=== PATIENT | female | born 1945 | race Caucasian/White ===

== ENCOUNTER → 2017-12-17 | Outpatient (CLI) | payer MEDICARE, OTHER ==
[~2017-12-17] MED LIST: AMO500 PO; AMOX-559 PO; AMOX500T10 PO; ASP325 PO; ASPI-757 PO; ATEN-1 PO; CALC300T PO; CALCIUM PO; CHLO-172 PO; CHOL10005 PO; CIP500 PO; CIPR-326 PO; CPAP; DICL100G39 TOP; ESCI20TA38 PO; ESCI20TA8 PO; FAM20 PO; FLU IM; FLU180SY9 IM; FLU45SYR17 IM; FLU45SYR25 IM ONLY; FLUC150T40 PO; FLUT9.9S; FUR20 PO; FURO-47 PO; GLUC-129 PO; GLUC-178 PO; GLUC-198 PO; GLUCOSAMINE; GUALA600 PO; HYDR-385 PO; HYDR-4309 PO; IBU600 PO; KLOR; LEVO137T22 PO; LEVO137T23 PO; LEVO150T72 PO; LEVO150T78 PO; LEVO750T44 PO; LOPE1LIQ49 PO; LOR10 PO; LOR5 PO; LOR5/325 PO; MAX75 PO; MELO-205 PO; METO-1 PO; METO25TA23 PO; MON4 PO; MULT-892 PO; MULT1CAP59 PO; OMEG-78 PO; OMEG500C5 PO; OMEP40CA45 PO; OMEP40CA48 PO; PHENA200 PO; PNEU0.5D3 IM; POTA8TAB41 PO; POTASSIUM PO; PRA20 PO; PRE5 PO; PRED20TA6 PO; ROPI0.2527 PO; SIMV-49 PO; TRAZ-156 PO
[2017-12-17 11:18] LABS: PLATELET COUNT, AUTOMATED 234 K/uL (150-450)
== END ==
LOC: LAB 10:45
PROVIDERS: ATTEND Orthopaedic Surgery
DX: Z01.812 Encounter for preprocedural laboratory examination (principal); M17.12 Unilateral primary osteoarthritis, left knee; G43.909 Migraine, unspecified, not intractable, without status migrainosus; E03.9 Hypothyroidism, unspecified; I27.20 Pulmonary hypertension, unspecified; I50.9 Heart failure, unspecified; Z99.89 Dependence on other enabling machines and devices; N39.0 Urinary tract infection, site not specified
CPT/HCPCS: 36415; 81001; 82040; 82247; 82310; 82374; 82435; 82565; 82947; 84075; 84132; 84155; 84295; 84443; 84450; 84460; 84520; 85025; 87088

== ENCOUNTER → 2018-03-03 | Outpatient (CLI) | payer MEDICARE, OTHER ==
[~2018-03-03] MED LIST changes: +HYDR453.8 TP; +METO50TA19 PO
[2018-03-03 14:20] LABS: PLATELET COUNT, AUTOMATED 236 K/uL (150-450)
--- NOTE | 2018-03-03 14:53 | RADIOLOGY IMAGING REPORT ---
FACILITY: [facility] - [place] PATIENT NAME: Zoë Andrew : 1945 MR: [id number] V: [id number] EXAM DATE: [id number] ORDERING PHYSICIAN: MANAV MORTON TECHNOLOGIST: Location: [facility] - [place], [place] Patient: Zoë Andrew : 1945 Visit/Account:[id number] Date of Sevice: 03/03/2018 Exam type: CHEST PA AND LAT History: increased exertional shortness of breath and wt gain Comparison: October 01, 2017 Findings: The lungs are free of acute effusions, infiltrates or edema. There appears be mild peribronchial th ickening bilaterally. The cardiac silhouette is normal in size. The trachea is midline. There is a n S-shaped scoliosis of the thoracolumbar spine with spondylotic changes.. IMPRESSION: 1. Mild chronic peribronchial thickening Report Dictated By: Anju Gomez MD at 03/03/2018 2:48 PM Report E-Signed By: Anju Gomez MD at 03/03/2018 2:50 PM WSN:[email or web address]
== END ==
LOC: LAB 13:45
PROVIDERS: ATTEND Nurse Practitioner Family
DX: M41.85 Other forms of scoliosis, thoracolumbar region (principal); R91.8 Other nonspecific abnormal finding of lung field; R06.02 Shortness of breath
CPT/HCPCS: 36415; 71046; 83880; 85025

== ENCOUNTER → 2018-03-17 | Outpatient (CLI) | payer MEDICARE, OTHER ==
[~2018-03-17] MED LIST changes: +ALB18R INH; +DOXY-179 PO; +Work release
--- NOTE | 2018-03-17 11:52 | RADIOLOGY IMAGING REPORT ---
FACILITY: [facility] PATIENT NAME: Zoë Andrew : 1945 MR: [id number] V: [id number] EXAM DATE: ORDERING PHYSICIAN: MANAV MORTON TECHNOLOGIST: Location: [facility] Patient: Zoë Andrew : 1945 Visit/Account:[id number] Date of Sevice: 03/17/2018 CHEST PA AND LAT History: Fevers, cough, short of breath, evaluate PNA FINDINGS: Comparison studies: Comparison radiographs 03/03/2018 and 10/01/2017 and 06/26/2011 Tubes and Lines: None. Lungs and pleura: There is very subtle interstitial opacities which I do not believe are significan tly different from the most recent radiograph but new from 2010. There is no focal consolidation or pleural effusions Mediastinum: normal. Cardiac silhouette: normal . Osseous structures: Unremarkable for age . IMPRESSION: Given above history findings suspicious for very mild pneumonitis with mild pulmonary edema less li jess. No evidence of lobar pneumonia Report Dictated By: Nando Winn MD at 03/17/2018 11:44 AM Report E-Signed By: Nando Winn MD at 03/17/2018 11:48 AM WSN:[email or web address]
== END ==
LOC: RAD 10:37
PROVIDERS: ATTEND Nurse Practitioner Family
DX: J40 Bronchitis, not specified as acute or chronic (principal)
CPT/HCPCS: 71046

== ENCOUNTER → 2018-06-23 | Outpatient (CLI) | payer MEDICARE, OTHER ==
[~2018-06-23] MED LIST changes: -TRAZ-156 PO; +TRAZ50TA34 PO
--- NOTE | 2018-06-23 15:57 | RADIOLOGY IMAGING REPORT ---
FACILITY: [facility] PATIENT NAME: Zoë Andrew : 1945 MR: [id number] V: [id number] EXAM DATE: ORDERING PHYSICIAN: OZIEL BRITO TECHNOLOGIST: Location: [facility] - [place] Patient: Zoë Andrew : 1945 Visit/Account:[id number] Date of Sevice: 06/23/2018 CHEST PA AND LAT HISTORY: Bronchitis. COMPARISON: Chest x-ray March 17, 2018. FINDINGS: Cardiomediastinal contours: The heart size is normal. Lungs and pleura: There is diffuse prominence of interstitial markings but the findings are most prom inent in the right middle and lower lobe suggesting more focal atypical pneumonia or even bronchitis. An early infiltrate cannot be excluded. There is no pleural effusion. Bones/soft tissues: There are no findings of a fracture. IMPRESSION: 1. Diffuse prominence of the interstitial markings bilaterally. 2. Asymmetrically increased interstitial markings in the right middle and lower lobe suggesting an a typical pneumonia or perhaps emerging infiltrate. 3. No pleural effusions. Report Dictated By: Manfred Espino MD at 06/23/2018 3:51 PM Report E-Signed By: Manfred Espino MD at 06/23/2018 3:52 PM WSN:[email or web address]
== END ==
LOC: RAD 15:17
PROVIDERS: ATTEND Internal Medicine
DX: R91.8 Other nonspecific abnormal finding of lung field (principal)
CPT/HCPCS: 71046

== ENCOUNTER → 2018-07-05 | Outpatient (CLI) | payer MEDICARE, OTHER ==
[~2018-07-05] MED LIST changes: +CEPH-13 PO; +OXYGENHOME INH; +PHEN200T32 PO
[2018-07-05 16:24] LABS: PLATELET COUNT, AUTOMATED 237 K/uL (150-450)
== END ==
LOC: LAB 16:12
PROVIDERS: ATTEND Nurse Practitioner Family
DX: E03.9 Hypothyroidism, unspecified (principal); R60.9 Edema, unspecified; J84.9 Interstitial pulmonary disease, unspecified; R30.0 Dysuria; B96.20 Unspecified Escherichia coli [E. coli] as the cause of diseases classified elsewhere
CPT/HCPCS: 36415; 81001; 82040; 82247; 82310; 82374; 82435; 82565; 82947; 84075; 84132; 84155; 84295; 84443; 84450; 84460; 84520; 85025; 86140; 87077; 87088; 87186

== ENCOUNTER → 2018-07-08 | Outpatient (CLI) | payer MEDICARE, OTHER ==
--- NOTE | 2018-07-08 10:18 | RADIOLOGY IMAGING REPORT ---
FACILITY: [facility] - [place] PATIENT NAME: Zoë Andrew : 1945 MR: [id number] V: [id number] EXAM DATE: ORDERING PHYSICIAN: CASIE FREEMAN TECHNOLOGIST: Location: [facility] [place] Patient: Zoë Andrew : 1945 Visit/Account:[id number] Date of Sevice: 07/08/2018 Exam type: CHEST PA AND LAT History: interstitial pneumonia Comparison: June 23, 2018. Findings: Patchy increased markings in the medial portion right lung base appears similar to the prior study. There is no evidence of pleural effusions. The cardiac silhouette is normal in size. The scoliosis of the thoracal lumbar spine with spondylotic changes. IMPRESSION: 1. Patchy airspace consolidation the medial right lung base appears similar to the prior study and m ay represent residual infiltrate and/or atelectasis. Underlying scarring from previous pneumonia is also in the differential diagnosis. Depending upon the clinical presentation short-term follow-up ch est or chest CT may be of value Report Dictated By: Anju Gomez MD at 07/08/2018 10:10 AM Report E-Signed By: Anju Gomez MD at 07/08/2018 10:14 AM BRIGIDAN:[email or web address]
== END ==
LOC: RAD 09:20
PROVIDERS: ATTEND Nurse Practitioner Family
DX: J84.9 Interstitial pulmonary disease, unspecified (principal); R91.8 Other nonspecific abnormal finding of lung field; M41.85 Other forms of scoliosis, thoracolumbar region
CPT/HCPCS: 71046

== ENCOUNTER → 2018-07-20 | Outpatient (CLI) | payer MEDICARE, OTHER | LOC: LAB 10:33 | PROVIDERS: ATTEND Nurse Practitioner Family | DX: N39.0 Urinary tract infection, site not specified (principal) | CPT/HCPCS: 81001 ==

== ENCOUNTER → 2018-07-29 | Outpatient (CLI) | payer MEDICARE, OTHER ==
--- NOTE | 2018-07-29 15:10 | EKG ---
FACILITY: [facility] - [place], [place] PATIENT NAME: MARSHA REILLY : [id number] MR: [id number] V: [id number] EXAM DATE: ORDERING PHYSICIAN: CASIE FREEMAN TECHNOLOGIST: AYDEN Haynes Reason : PRE-OP Blood Pressure : / mmHG Vent. Rate : 053 BPM Atrial Rate : 053 BPM P-R Int : 168 ms QRS Dur : 078 ms QT Int : 472 ms P-R-T Axes : 062 017 039 degrees QTc Int : 442 ms Sinus bradycardia Otherwise normal ECG Confirmed by PETE LUCIO ([id number]) on 07/30/2018 6:50:13 AM Referred By: PETE Confirmed By:PETE LUCIO
== END ==
LOC: LAB 13:42
PROVIDERS: ATTEND Nurse Practitioner Family
DX: Z02.9 Encounter for administrative examinations, unspecified (principal)

== ENCOUNTER → 2018-07-29 | Outpatient (CLI) | payer MEDICARE, OTHER ==
--- NOTE | 2018-07-29 12:09 | RADIOLOGY IMAGING REPORT ---
FACILITY: [facility] PATIENT NAME: Zoë Andrew : 1945 MR: [id number] V: [id number] EXAM DATE: ORDERING PHYSICIAN: CASIE FREEMAN TECHNOLOGIST: Location: [facility] Patient: Zoë Andrew : 1945 Visit/Account:[id number] Date of Sevice: 07/29/2018 2 VIEWS CHEST INDICATION: Shortness of breath. Some coughing. History of interstitial lung disease. COMPARISON: Examination of the chest from July 08, 2018 FINDINGS: The cardiac silhouette is upper limits of normal, stable. Compared to prior x-ray from June, stabl e hazy opacity medial right lower lobe. Finding may represent scarring or epicardial fat. There is no pulmonary consolidative correlation on the lateral view.. Stable central bronchitic changes. No new consolidation on the lateral view. No effusion or pneumothorax. Stable spondylotic changes with out acute finding. IMPRESSION: 1. Stable chronic parenchymal changes without acute finding. Report Dictated By: Hebert Brooks MD at 07/29/2018 12:03 PM Report E-Signed By: Hebert Brooks MD at 07/29/2018 12:05 PM WSN:[email or web address]
== END ==
LOC: RAD 11:02
PROVIDERS: ATTEND Nurse Practitioner Family
DX: R91.8 Other nonspecific abnormal finding of lung field (principal)
CPT/HCPCS: 71046

== ENCOUNTER → 2018-09-21 | Outpatient (CLI) | payer MEDICARE, OTHER ==
[~2018-09-21] MED LIST changes: +DULO30CA6 PO; +DULO60CA56 PO; -HYDR-4309 PO; +HYDR-653 PO; +TRIA10.8
== END ==
LOC: RESP 01:29
PROVIDERS: ATTEND Nurse Practitioner Family
DX: J98.4 Other disorders of lung (principal)
CPT/HCPCS: 94060; 94726; 94729

== ENCOUNTER → 2018-10-18 | Outpatient (CLI) | payer MEDICARE, OTHER ==
[2018-10-18 10:05] LABS: PLATELET COUNT, AUTOMATED 252 K/uL (150-450)
--- NOTE | 2018-10-18 11:04 | RADIOLOGY IMAGING REPORT ---
FACILITY: [facility] PATIENT NAME: Zoë Andrew : 1945 MR: [id number] V: [id number] EXAM DATE: ORDERING PHYSICIAN: CASIE FREEMAN TECHNOLOGIST: Location: [place] [facility] Patient: Zoë Andrew : 1945 Visit/Account:[id number] Date of Sevice: 10/18/2018 Exam type: CHEST PA AND LAT History: Hypoxia, shortness of breath Comparison: July 29, 2018. Findings: Mild chronic central peribronchial thickening and chronic haziness over the medial right lung base ap pears stable. There is no evidence of acute pulmonary consolidation pleural effusions or pulmonary e kayode. The cardiac silhouette is normal in size. There is an S-shaped scoliosis of the thoracolumbar spine. IMPRESSION: 1. Mild chronic central peribronchial thickening and chronic haziness over the medial right lung bas e appears stable. No evidence of acute pulmonary consolidation Report Dictated By: Anju Gomez MD at 10/18/2018 10:58 AM Report E-Signed By: Anju Gomez MD at 10/18/2018 11:00 AM WSN:[email or web address]
== END ==
LOC: LAB 09:39
PROVIDERS: ATTEND Nurse Practitioner Family
DX: R09.02 Hypoxemia (principal); R06.01 Orthopnea
CPT/HCPCS: 36415; 71046; 83880; 85025; 86140

== ENCOUNTER → 2019-01-17 | Outpatient (CLI) | payer MEDICARE, OTHER ==
--- NOTE | 2019-01-17 16:18 | RADIOLOGY IMAGING REPORT ---
FACILITY: [facility] - [place] PATIENT NAME: Zoë Andrew : 1945 MR: [id number] V: [id number] EXAM DATE: ORDERING PHYSICIAN: EDYTA MCKEON TECHNOLOGIST: [place] [facility] [place]: [place] : 1945 Visit/Account:[id number] Date of Sevice: 01/17/2019 CT CHEST W/O CONTRAST EXAMINATION: CT Thorax W/O Contrast HISTORY: Restrictive lung disease, hypoxia, nonsmoker TECHNIQUE: High resolution CT chest protocol: A non-intravenous enhanced contiguous spiral scan was obtained through the chest. This was followed by inspiration and expiration 1 mm thick high-resolutio n axial images at 15 mm intervals, reconstructed using a high spatial resolution algorithm. High-res olution prone imaging was performed One of the following dose optimization techniques was utilized in the performance of this exam: Autom ated exposure control; adjustment of the mA and/or kV according to the patient's size; or use of an i terative reconstruction technique. Specific details can be referenced in the facility's radiology C T exam operational policy. COMPARISON STUDIES: CT scan 04/05/2009. FINDINGS: Chest survey: Atherosclerotic calcification of the thoracic aorta and LAD is noted. Moderate-sized h iatal hernia is noted. Calcified mediastinal lymph nodes and calcified granulomas in both lungs are consistent with old gran ulomatous disease. Slightly prominent partially calcified mediastinal lymph nodes are stable. The upper abdomen is unremarkable. The osseous structures demonstrate degenerative changes in the spine. High Resolution Inspiration images: There is a chronic appearing atelectasis or scarring in the media l segment right middle lobe and lingula are noted similar to the 2008 study. There is mild bronchiec tasis. Subtle interstitial nodular pattern in the right lower lobe may represent atypical mycobacter ial infection. No significant pathology at the level secondary pulmonary lobule. High Resolution Expiration images: No significant airway gas trapping IMPRESSION: 1. No evidence for significant interstitial lung disease. 2. Old granulomatous disease with areas of chronic scarring in the right middle lobe and lingula. 3. Subtle interstitial nodular pattern right lower lobe could represent mild atypical mycobacterial infection. Report Dictated By: Po Ferguson MD at 01/17/2019 4:03 PM Report E-Signed By: Po Ferguson MD at 01/17/2019 4:13 PM WSN:[email or web address]
== END ==
LOC: CT 12-02 04:28
PROVIDERS: ATTEND Internal Medicine
DX: R91.8 Other nonspecific abnormal finding of lung field (principal)
CPT/HCPCS: 71250

== ENCOUNTER → 2019-02-03 | Outpatient (CLI) | payer MEDICARE, OTHER ==
[~2019-02-03] MED LIST changes: +LEVO175T42 PO
[2019-02-03 16:58] LABS: PLATELET COUNT, AUTOMATED 272 K/uL (150-450)
== END ==
LOC: LAB 16:24
PROVIDERS: ATTEND Nurse Practitioner Family
DX: R06.01 Orthopnea (principal); E03.9 Hypothyroidism, unspecified; R60.9 Edema, unspecified; R06.02 Shortness of breath
CPT/HCPCS: 36415; 82040; 82247; 82310; 82374; 82435; 82565; 82947; 83880; 84075; 84132; 84155; 84295; 84443; 84450; 84460; 84520; 85025

== ENCOUNTER → 2019-02-28 | Outpatient (CLI) | payer MEDICARE, OTHER ==
--- NOTE | 2019-02-28 10:47 | RADIOLOGY IMAGING REPORT ---
FACILITY: [facility] - [place] PATIENT NAME: Zoë Andrew : 1945 MR: [id number] V: [id number] EXAM DATE: ORDERING PHYSICIAN: CASIE FREEMAN TECHNOLOGIST: Location: [facility] - [place] Patient: Zoë Andrew : 1945 Visit/Account:[id number] Date of Sevice: 02/28/2019 Exam type: CHEST PA LAT History: hypoxia / SOB, preop evaluation Comparison: October 18, 2018. Findings: Chronic peribronchial thickening and chronic haziness over the medial right lung base appears stable. There is no evidence of acute appearing pulmonary consolidation, pleural effusions or pulmonary basilio ma. The cardiac silhouette is normal in size. There is a S-shaped scoliosis of the thoracic spine w ith associated spondylotic changes. IMPRESSION: 1. Chronic peribronchial thickening and haziness over the medial right lung base appears stable. No evidence of acute pulmonary consolidation Report Dictated By: Anju Gomez MD at 02/28/2019 10:41 AM Report E-Signed By: Anju Gomez MD at 02/28/2019 10:43 AM WSN:[email or web address]
[2019-02-28 10:56] LABS: PLATELET COUNT, AUTOMATED 243 K/uL (150-450)
== END ==
LOC: RAD 10:01
PROVIDERS: ATTEND Nurse Practitioner Family
DX: Z01.818 Encounter for other preprocedural examination (principal); E03.9 Hypothyroidism, unspecified; J98.4 Other disorders of lung; Z87.440 Personal history of urinary (tract) infections; Z79.899 Other long term (current) drug therapy
CPT/HCPCS: 36415; 71046; 81001; 82040; 82247; 82310; 82374; 82435; 82565; 82947; 83880; 84075; 84132; 84155; 84295; 84443; 84450; 84460; 84520; 85025

== ENCOUNTER → 2019-03-21 | Outpatient (CLI) | payer MEDICARE, OTHER ==
--- NOTE | 2019-03-21 14:50 | RADIOLOGY IMAGING REPORT ---
FACILITY: [facility] - [place] PATIENT NAME: Zoë Andrew : 1945 MR: [id number] V: [id number] EXAM DATE: ORDERING PHYSICIAN: CASIE FREEMAN TECHNOLOGIST: Location: [facility] - [place] Patient: Zoë Andrew : 1945 Visit/Account:[id number] Date of Sevice: 03/21/2019 CHEST PA LAT History: Hypoxia, fever, cough FINDINGS: Comparison studies: Comparison chest x-rays 02/28/2019 and 07/08/2018 and 10/01/2017 Tubes and Lines: None. Lungs and pleura: There is mild chronic right infrahilar interstitial markings unchanged from 2017. Calcified granuloma left lung base unchanged. No developing areas of consolidation. Mediastinum: normal. Cardiac silhouette: Upper normal limits in size Osseous structures: Mild dextroconvex lumbar scoliotic curvature. IMPRESSION: No acute cardiopulmonary pathology identified. No definite radiographic evidence of developing pne umonia. Report Dictated By: Nando Winn MD at 03/21/2019 2:42 PM Report E-Signed By: Nando Winn MD at 03/21/2019 2:46 PM WSN:[email or web address]
== END ==
LOC: RAD 13:31
PROVIDERS: ATTEND Nurse Practitioner Family
DX: R91.8 Other nonspecific abnormal finding of lung field (principal)
CPT/HCPCS: 71046

== ENCOUNTER → 2019-03-28 | Outpatient (CLI) | payer MEDICARE, OTHER ==
[~2019-03-28] MED LIST changes: +FLUT1DIS28 IH; +IPRA3AMP10 IH; +Nebulizer; +SERT-184 PO
--- NOTE | 2019-03-28 16:27 | RADIOLOGY IMAGING REPORT ---
FACILITY: [facility] - [place] PATIENT NAME: Zoë Andrew : 1945 MR: [id number] V: [id number] EXAM DATE: ORDERING PHYSICIAN: CASIE FREEMAN TECHNOLOGIST: Location: [facility] - [place] Patient: Zoë Andrew : 1945 Visit/Account:[id number] Date of Sevice: 03/28/2019 CHEST PA LAT INDICATION: Cough, shortness of breath COMPARISON: None available FINDINGS: Heart size within normal limits. There is left lower lobe atelectasis versus infiltrate present. The remainder the lungs are clear. There is no pneumothorax or pleural effusion. IMPRESSION: 1. Left lower lobe atelectasis versus infiltrate Report Dictated By: Titi Lux at 03/28/2019 4:19 PM Report E-Signed By: Titi Lux at 03/28/2019 4:24 PM WSN:[email or web address]
== END ==
LOC: RAD 15:48
PROVIDERS: ATTEND Nurse Practitioner Family
DX: R91.8 Other nonspecific abnormal finding of lung field (principal)
CPT/HCPCS: 71046

== ENCOUNTER → 2019-04-03 | Outpatient (CLI) | payer MEDICARE, OTHER ==
--- NOTE | 2019-04-03 09:25 | RADIOLOGY IMAGING REPORT ---
[place] [facility] [place] NAME: Zoë Andrew : 1945 MR: [id number] V: [id number] EXAM DATE: ORDERING PHYSICIAN: CASIE FREEMAN TECHNOLOGIST: Location: [facility] Patient: Zoë Andrew : 1945 Visit/Account:[id number] Date of Sevice: 04/03/2019 Chest with lateral, two views. HISTORY: Pneumonia. COMPARISON: 03/28/2019. The heart size is normal. The aortic knob is calcified. Pulmonary vessels are normal. Mild streaky densities are present in the left lung base and right medial lung base, unchanged. A gas collection is present posterior to the heart consistent with a small hiatal hernia. A 6 mm calcified granuloma is present in the posterior basilar segment of the left lower lobe, unchanged. Degenerative changes are present in the spine. IMPRESSION: Bibasilar subsegmental atelectasis and/or pleural parenchymal scars, unchanged. Old granulomatous disease. Small hiatal hernia. Report Dictated By: Lane Anthony MD at 04/03/2019 9:17 AM Report E-Signed By: Lane Anthony MD at 04/03/2019 9:20 AM WSN:[email or web address]
== END ==
LOC: RAD 08:49
PROVIDERS: ATTEND Nurse Practitioner Family
DX: R91.8 Other nonspecific abnormal finding of lung field (principal)
CPT/HCPCS: 71046

== ENCOUNTER → 2019-04-04 | Outpatient (CLI) | payer MEDICARE, OTHER | LOC: LAB 16:41 | PROVIDERS: ATTEND Nurse Practitioner Family | DX: R35.0 Frequency of micturition (principal) | CPT/HCPCS: 81001; 87077; 87088; 87186 ==

== ENCOUNTER → 2019-05-05 | Outpatient (CLI) | payer MEDICARE, OTHER ==
[~2019-05-05] MED LIST changes: +LEVO750T27 PO; +SERT-181 PO; -TRAZ50TA34 PO; +TRAZ50TA52 PO
--- NOTE | 2019-05-05 10:19 | RADIOLOGY IMAGING REPORT ---
FACILITY: [facility] PATIENT NAME: Zoë Andrew : 1945 MR: [id number] V: [id number] EXAM DATE: ORDERING PHYSICIAN: CASIE FREEMAN TECHNOLOGIST: Location: [facility] [place] Patient: Zoë Andrew : 1945 Visit/Account:[id number] Date of Sevice: 05/05/2019 Chest 2 views: HISTORY: Follow-up for pneumonia diagnosed last month. COMPARISON: 04/03/2019 COMPARISON: 04/03/2019 as well as multiple other priors. FINDINGS: Frontal and lateral chest: Cardiomediastinal silhouette is within normal limits. There is no focal infiltrate or pleural effusion. No pneumothorax. Pulmonary vasculature is normal. Minimal streaky left basilar opacity most significant on the left likely represents subsegmental atelectasis or scarring. There is improved aeration of the left lung base compared to the prior study.. There is no pleural effusion or pneumothorax. Pulmonary vasculature is normal. IMPRESSION: Minimal bibasilar subsegmental atelectasis or scarring. There is overall improved aerati on of the left lung base compared to the most recent prior study. There is no focal consolidation. Report Dictated By: Rafaela Rodriguez MD at 05/05/2019 10:08 AM Report E-Signed By: Rafaela Rodriguez MD at 05/05/2019 10:13 AM WSN:[email or web address]
== END ==
LOC: RAD 09:23
PROVIDERS: ATTEND Nurse Practitioner Family
DX: J18.9 Pneumonia, unspecified organism (principal)
CPT/HCPCS: 71046

== ENCOUNTER → 2019-05-15 | Outpatient (CLI) | payer MEDICARE, OTHER ==
[2019-05-15 10:24] LABS: PLATELET COUNT, AUTOMATED 250 K/uL (150-450)
== END ==
LOC: LAB 10:10
PROVIDERS: ATTEND Nurse Practitioner Family
DX: E78.2 Mixed hyperlipidemia (principal); E03.9 Hypothyroidism, unspecified
CPT/HCPCS: 36415; 82040; 82247; 82310; 82374; 82435; 82565; 82947; 84075; 84132; 84155; 84295; 84443; 84450; 84460; 84520; 85025

== ENCOUNTER 2019-06-13 00:40 | Observation (INO) | payer MEDICARE, OTHER ==
[2019-06-12 14:54] LABS: INR 0.93
[2019-06-13] VITALS (11 sets, daily range): BP systolic 115–148; BP diastolic 53–75
[~2019-06-13] VITALS: Ht 157.5 cm; Wt 79.4 kg
[2019-06-13] MEDS ORDERED: fentaNYL CITR 100 MCG/2 ML AMP ONE ×4 (10:58→16:49)
[2019-06-13] MEDS ORDERED: PROPOFOL EMUL(*) 10MG/ML 20 ML 20 ML ONE (10:59)
[2019-06-13] MEDS ORDERED: LIDOCAINE 2% IV 100 MG/5ML SYR ONE (10:59)
[2019-06-13] MEDS ORDERED: ONDANSETRON 4 MG/2 ML VIAL ONE (13:59)
[2019-06-13] MEDS ORDERED: DEXAMETHASONE SOD PHOS 10MG/ML ONE (13:59)
[2019-06-13] MEDS ORDERED: KETAMINE HCL 200 MG/20 ML MDV ONE ×2 (14:00→15:01)
[2019-06-13] MEDS ORDERED: TRANEXAMIC AC 1000 MG/10ML SDV 1,000 MG in DEXTROSE 5% 50 ML BAG 50 ML IV ONE (14:15)
[2019-06-13] MEDS ORDERED: BACITRACIN 50000 UNIT/VIAL 100,000 UNIT in NS 0.9% 3000 ML IRRIGATION BAG 3,000 ML IR ONE (14:15)
[2019-06-13] MEDS ORDERED: PREGABALIN 75 MG CAPSULE PO ONE (14:15)
[2019-06-13] MEDS ORDERED: LIDOCAINE/SOD BICARB 8.4% SYR ID ONE (14:15)
[2019-06-13] MEDS ORDERED: ceFAZolin(*) 2GM/D5W 50ML 50 ML IVPB ONE (14:15)
[2019-06-13] MEDS ORDERED: ROPIVACAINE/EPI/CLONIDINE/KET 50 ML SYRINGE INJ ONE (14:15)
[2019-06-13] MEDS ORDERED: MIDAZOLAM 2 MG/2 ML VIAL IVP PRN (14:15)
[2019-06-13] MEDS ORDERED: NORMOSOL R SOLN(*) 1000 ML BAG 1,000 ML IV PRN (14:15)
[2019-06-13] MEDS ORDERED: FAMOTIDINE 20 MG TAB PO ONE (14:15)
[2019-06-13] MEDS ORDERED: ACETAMINOPHEN 500 MG TAB PO ONE (14:15)
[2019-06-13] MEDS ORDERED: fentaNYL CITR 250 MCG/5 ML AMP ONE (14:17)
[2019-06-13] MEDS ORDERED: hydrALAZINE HCL 20 MG/ML VIAL ONE (14:41)
[2019-06-13] MEDS ORDERED: HYDROmorphone HCL 2 MG/ML SDV IVP PRN (16:30)
[2019-06-13] MEDS ORDERED: diphenhydrAMINE 50 MG/ML VIAL IVP PRN (16:30)
[2019-06-13] MEDS ORDERED: LR 1000 ML BAG 1000 ML IV PRN (16:30)
[2019-06-13] MEDS ORDERED: MAGNESIUM CITRATE 300 ML BTL PO PRN (16:30)
[2019-06-13] MEDS ORDERED: BISACODYL 10 MG SUPP PR PRN (16:30)
[2019-06-13] MEDS ORDERED: MAGNESIUM HYDROXIDE* 30ML UDCP PO PRN (16:30)
[2019-06-13] MEDS ORDERED: diphenhydrAMINE 25 MG CAP PO PRN (16:30)
[2019-06-13] MEDS ORDERED: FLUSH 10 ML SYR IVP PRN (16:30)
[2019-06-13] MEDS ORDERED: ZOLPIDEM TARTRATE 5 MG TAB PO PRN (16:30)
[2019-06-13] MEDS ORDERED: PROMETHAZINE 25 MG/ML 1 ML AMP IVP PRN (16:30)
[2019-06-13] MEDS ORDERED: ONDANSETRON 4 MG/2 ML VIAL IVP PRN (16:30)
--- NOTE | 2019-06-13 17:36 | RADIOLOGY IMAGING REPORT ---
FACILITY: [facility] - [place] PATIENT NAME: Zoë Andrew : 1945 MR: [id number] V: [id number] EXAM DATE: ORDERING PHYSICIAN: CHLOÉ RODRIGUEZ TECHNOLOGIST: Location: [facility] [place] Patient: Zoë Andrew : 1945 Visit/Account:[id number] Date of Sevice: 06/13/2019 EXAMINATION: Left knee, 2 views 06/13/2019 3:55 PM HISTORY: S/P TOTAL KNEE ARTHROPLASTY CHECK PLACEMENT COMPARISON: MRI left knee 10/28/2015. FINDINGS: Status post left TKA. The femoral and tibial components are well seated and articulating a ppropriately. Postsurgical soft tissue gas is present ventrally. IMPRESSION: Status post left TKA. Report Dictated By: Arthur Saunders MD at 06/13/2019 5:27 PM Report E-Signed By: Arthur Saunders MD at 06/13/2019 5:29 PM WSN:[id number]
[2019-06-13] MEDS: oxyCODON/ACET (*)5/325MG (CII) 1 TAB TAB PO PRN (19:59)
--- NOTE | 2019-06-13 20:34 | Hospitalist Consultation ---
History of Present Illness Requesting Physician Dr Vázquez Reason for Consult Medical management of comorbidities Chief Complaint L TKA History of Present Illness 74F admitted after L TKA. PMHx siginficant for PVC's, hypothyroid, GERD, LANDEN. Tolerated surgery well without apparent complication. Denies any concerns at this time. History Problems: (1) Palpitations Status: Chronic (2) Hypothyroidism Onset Date: 04/01/2015 Status: Chronic (3) Depression Status: Chronic Home Meds Active Scripts Hydrocodone Bit/Acetaminophen (HYDROCODON-ACETAMINOPHEN 5-325) 1 Each Tablet, 1 TAB PO QID PRN for PAIN, #120 TAB 0 Refills Prov:CASIE FREEMAN APRNP-C 05/15/19 Omeprazole (OMEPRAZOLE) 40 Mg Capsule.dr, 1 CAP PO QDAY, #90 CAP 1 Refill Prov:CASIE FREEMAN APRN-C 05/15/19 Sertraline Hcl (SERTRALINE HCL) 100 Mg Tablet, 1 TAB PO QDAY, #90 TAB 0 Refills Prov:CASIE FREEMAN APRN-C 05/05/19 Levothyroxine Sodium (LEVOTHYROXINE SODIUM) 150 Mcg Tablet, 1 TAB PO HS, #90 TAB Prov:CASIE FREEMAN APRN-C 05/01/19 Metoprolol Succinate (METOPROLOL SUCCINATE) 50 Mg Tab.er.24h, 1 TAB PO DAILY, #90 TAB 2 Refills Prov:CASIE FREEMAN APRN-C 04/05/19 Sertraline Hcl (SERTRALINE HCL) 50 Mg Tablet, 1 TAB PO QDAY, #90 TAB 0 Refills Prov:CASIE FREEMAN APRN-C 03/24/19 Simvastatin (SIMVASTATIN) 20 Mg Tablet, 1 TAB PO HS, #90 TAB 1 Refill Prov:CASIE FREEMAN APRNC 02/20/19 Trazodone Hcl (TRAZODONE HCL) 50 Mg Tablet, 1 TAB PO QHS, #90 TAB 1 Refill Prov:CASIE FREEMAN APRN-C 02/20/19 Fluticasone Propionate (Flonase Allergy Relief) 9.9 Ml [place].susp, 2 EA NA DAILY, #1 BOTTLE 0 Refills Prov:CASIE FREEMAN APRN 02/03/19 Cpap (CPAP HOME) [place]ha, EACH QHS, #1 Prov:CASIE FREEMAN APRN 09/08/17 Diclofenac Sodium 1% Gel (VOLTAREN 1% GEL) 100 Gm Gel..gram., 2 GM TOP QID PRN for PAIN, #100 GM 2 Refills rub in well to foot and or knee as needed for pain Prov:CASIE FREEMAN APRN 08/06/17 Potassium Chloride (KLOR-CON 8) 8 Meq Tablet.er, 1 TAB PO QDAY PRN for when she takes lasix., #90 TAB 3 Refills Prov:CASIE FREEMAN APRN 08/06/17 Reported Medications Furosemide (FUROSEMIDE) 40 Mg Tablet, 1 TAB PO QDAY for edema, TAB 03/14/19 Aspirin (ASPIRIN) 325 Mg Tablet, 1 TAB PO DAILY, TAB 06/30/16 [place]-3 Fatty Acids (FISH OIL) Unknown Strength Capsule.dr, 1000 MG PO DAILY 01/17/16 Glucosa Ingram 2KCL/Chondroitin Ingram (GLUCOSAMINE & CHONDROITIN CAP) 1 Each Capsule, 2 EACH PO, CAPSULE 01/17/16 Chlorpheniramine Maleate (CHLORPHENIRAMINE MALEATE) 4 Mg Tablet, 1 TAB PO DAILY, #100 TAB 04/01/15 Cholecalciferol (Vitamin D3) (VITAMIN D3) 1,000 Unit Tablet, 2 TAB PO DAILY, #100 TAB 4 Refills 04/01/15 Discontinued Scripts [Nebulizer] No Conflict Check Prov:CASIE FREEMAN APRN 03/24/19 Allergies: Coded Allergies: Sulfa (Sulfonamide Antibiotics) (Verified Allergy, Intermediate, RASH, 10/01/17) LOW BP AND PULSE sulfamethoxazole (Verified Allergy, Mild, 10/01/17) trimethoprim (Verified Allergy, Mild, 10/01/17) meloxicam (Verified Adverse Reaction, Mild, itching , 03/14/19) Uncoded Allergies: HAYFEVER (Allergy, Mild, RESP SX, 04/27/12) Hx Smoking: No Smoking Status: Never Smoker Exposure to Second Hand Smoke?: Yes Caffeine Intake: Coffee, Tea Caffeine/Cups Per Day: 4 Hx Alcohol Use: No Hx Substance Use Disorder: No Social Drug Use: Never History of IV Drug Use: No Review of Systems All Systems Reviewed/Normal: Yes, Except as Noted Cardiovascular: No Chest Pain Musculoskeletal: No Pain Exam Vital Signs Vital Signs Date Time Temp Pulse Resp B/P (MAP) Pulse Ox O2 Delivery O2 Flow Rate FiO2 06/13/19 17:30 71 131/53 (79) 94 06/13/19 17:13 98.5 16 Nasal Cannula 2.0 General Appearance: Alert, Awake, No Acute Distress Neuro: No Gross deficits Cardiovascular: Normal Rhythm & Peripheral Pulses Respiratory: No Respiratory Distress Extremities: Soft and Non Tender, Warm, Pulses, Perfused Assessment and Plan Problems: (1) Arthritis of left knee Assessment & Plan: Post L TKA. Management per primary, 325mg ASA for DVT prophylaxis. PT consulted. (2) Hypothyroidism Onset Date: 04/01/2015 Status: Chronic Assessment & Plan: Continue chronic levothyroxine. (3) Palpitations Status: Chronic Assessment & Plan: ON chronic metoprolol, continued. (4) GERD (gastroesophageal reflux disease) Assessment & Plan: On chronic PPI therapy Venous Thromboembolism Antithrombotics Is Pt On Any Antithrombotics?: Yes Exam Sepsis Risk: No Definite Risk MORTON ISRAEL PRINGLE DO Jun 13, 2019 20:34
[2019-06-13] MEDS ORDERED: ASPIRIN 325 MG TAB PO SCH (21:00)
[2019-06-13] MEDS ORDERED: SIMVASTATIN 20 MG TAB PO SCH (21:00)
[2019-06-13] MEDS: ceFAZolin(*) 1 GM VIAL 1 GM in NS(*) 0.9% 100 ML MINI-BAG 100 ML IVPB SCH (21:41)
[2019-06-14] MEDS: oxyCODON/ACET (*)5/325MG (CII) 1 TAB TAB PO PRN ×3 (00:08→14:25)
[2019-06-14 00:15] VITALS: BP 113/0
[2019-06-14 05:30] VITALS: BP 102/45
--- NOTE | 2019-06-14 05:39 | OPERATIVE REPORT 1 ---
EVENT DATE: June 13, 2019 SURGEON: Wilver Vázquez MD ANESTHESIOLOGIST: Mushtaq Anderson MD ANESTHESIA: General plus spinal anesthesia. [employer] ENGINEER: SAMATNHA Verde PREOPERATIVE DIAGNOSIS Left knee osteoarthritis. POSTOPERATIVE DIAGNOSIS Left knee osteoarthritis. PROCEDURE PERFORMED Left total knee arthroplasty. FINDINGS The patient had significant amount of arthritic changes associated with the left knee, but was amenable for a total knee replacement. ESTIMATED BLOOD LOSS 250 mL. DRAINS None. COMPLICATIONS None. TOURNIQUET TIME Up for about 30 minutes for the cement to harden, and then closure. IMPLANTS USED DePuy size 5 narrow left posterior-stabilized femur with a 5 x 5 rotating- platform poly insert, a 4 rotating platform tibia of the DePuy Attune system, and a 35 anatomic patella. SPECIMENS None. INDICATIONS AND HISTORY This patient is a 74-year-old female who presented to my clinic for evaluation of left knee pain and irritation going on for some time. She had tried conservative management and then wanted to go ahead with a total knee arthroplasty. Unfortunately, she had to be moved a couple times secondary to getting bronchitis, but then she was healthy enough to undergo this today, 06/13/2019. The risks and benefits were discussed with the patient and informed consent was obtained at the last clinic visit. DESCRIPTION OF PROCEDURE As this patient was brought in to the operating room, she and the procedure were both verified. She was placed supine on the operative table and induced and intubated by Anesthesia after being given a spinal by Anesthesia, and then the left leg and lower extremity was prepped and draped in the usual fashion and a time-out was observed, verifying the correct patient and procedure. The standard incision was made over the anterior aspect of the knee. It was taken through the skin and subcutaneous tissue and down to a medial parapatellar approach. Once I made the medial parapatellar approach, I then subluxed the patella to the lateral side and then gained access to the femur and the tibia. I then cauterized blood vessels throughout the case, as there was no tourniquet up through the first part of the case. I then removed the patellar fat pad and then also some of the synovitis up top above the femur. This was then followed by removing the ACL and the first part of the PCL and then taking a rongeur and taking off some of the cartilage in the central portion of the femur to gain access for the intramedullary guide. Once I drilled down the central axis of the femur, I was then able to place the intramedullary guide and then put the 5 and 9 cutting block up on top to cut the 9 mm of distal femur. Once I cut the distal femur, I then put in the sizer, which sized to a size 5, and then I was able to pin this in place and then put in the 4-in-1 cutting block. Once I put in the 4-in-1 cutting block, I cut the anterior and posterior as well as the chamfer cuts without any major difficulty, and then put in the notch cutting guide and cut the notch without any issues. She did size better to a narrow, and so this was the final femoral component chosen. I then went to the tibia, where I was able to remove the remainder of the menisci in the posterior aspect. Also, I was able to then drill the tibia in the central portion. I then put in the intramedullary guide for here, and then, taking 2 mm off the medial side, I was able to cut the proximal tibia without any difficulty. I then also removed some osteophytes off the posterior aspect of the femur to try to do a little bit of a posterior capsular release, as she was very tight with extension. This was then followed by placement of a 4 tibial tray, and then we drilled and then put in the flange for this in order to do the trial components. We made sure that we were well aligned with the tibia the entire time, and then trialed the 5 mm poly, which fit well and went out to full extension, although she was a little tight with this, but once again, we had already done a posterior release. Then I was able to flex it really well. There were no signs of problems, and the patella tracked well. I then straightened the knee out and everted the patella and then cut the patella to a 9.5 mm cut, put on a 35 mm anatomic patella trial, and this tracked well and allowed for a little bit more extension. I then took an Esmarch to the leg and then took up the tourniquet. Once the tourniquet was all the way up, we then removed the trial components and then washed out the entire knee, put in a joint solution formula for pain control, and then placed a bone plug in the distal femur. This was then followed by cementing the tibial component, then the femoral component, then the patellar component, removing all excess cement, and then letting it harden out in extension. I then was able to flex the knee a little bit and repair the parapatellar approach with a #2 Quill. This was then followed by 2-0 Vicryl in the fat layer, followed by a 2-0 Stratafix in the subcutaneous layer and subcuticular 4-0 running Monocryl, then followed by a bio-occlusive dressing. The tourniquet was then let down. The patient was awakened and extubated and transferred to PACU in stable condition, where she will be admitted at least overnight. VANESSA
[2019-06-14] MEDS: ceFAZolin(*) 1 GM VIAL 1 GM in NS(*) 0.9% 100 ML MINI-BAG 100 ML IVPB SCH ×2 (05:49→13:46)
[2019-06-14] MEDS ORDERED: LEVOTHYROXINE SOD 0.150 MG TAB PO SCH (06:00)
[2019-06-14 07:28] VITALS: BP 115/58
[2019-06-14 08:45] VITALS: Ht 157.5 cm; Wt 79.4 kg
[2019-06-14] MEDS ORDERED: METOPROLOL SUCC XL 50 MG TABCR 50 MG TAB.ER.24H PO SCH (09:00)
[2019-06-14] MEDS ORDERED: PANTOPRAZOLE SOD 40 MG TABEC PO SCH (09:00)
--- NOTE | 2019-06-14 09:05 | Hospitalist Progress Note ---
Subjective Progress Notes Subjective This patient was admitted for knee replacement. She had no acte changes overnight. Patient Complains of: Cardiovascular: No: Chest Pain Respiratory: No: Shortness of Breath Physical Exam Vital Signs Date Time Temp Pulse Resp B/P (MAP) Pulse Ox O2 Delivery O2 Flow Rate FiO2 06/14/19 08:46 88 Room Air 06/14/19 07:28 98.1 64 13 115/58 (77) 1.0 Intake and Output 06/14/19 07:03 Intake Total 3120 ml Output Total 150 ml Balance 2970 ml Intake Oral 1020 ml IV Total 2100 ml Output Estimated Blood Loss 150 ml # Voids 2 Cardiovascular: Regular Rate and Rhythm Respiratory: Clear to Auscultation Result Diagram: 06/14/19 0520 Assessment and Plan Problems: (1) Arthritis of left knee Assessment & Plan: She is on aspirin prophylaxis. (2) Hypothyroidism Onset Date: 04/01/2015 Status: Chronic Assessment & Plan: She is on chronic treatment with levothyroxine. (3) Palpitations Status: Chronic Assessment & Plan: She is on chronic treatment with metoprolol. (4) GERD (gastroesophageal reflux disease) Assessment & Plan: On chronic PPI therapy Exam Sepsis Risk: No Definite Risk ELVIS MEYER DO Jun 14, 2019 09:05
--- NOTE | 2019-06-14 09:30 | NUR ---
Oxygen Patient states she has a concentrator and portable oxygen at home.
[2019-06-14 11:53] VITALS: BP 119/57
--- NOTE | 2019-06-14 12:24 | NUR ---
Physical Therapy Impression PT sameer completed and goals met with intital visit. Pt demos tolerance of ambulation with FWW and is encouraged to utilize this device if possible in home, rather than crutches. Pt notes that her d-i-l will pick one up from [facility] for her. Pt tolerated up/down stairs with rail and SBA. From a mobility standpoint pt is ready for d/c. Physical Therapy Goals Goals met with initial visit; no further visits planned 1. Pt to be SBA/Mod indep with bed mobility and supine to/from sit 2. Pt to be SBA/Mod indep with sit to/from stand 3. Pt to be SBA/CGA with ambulation x 100' 4. Pt to complete up/down 4 steps with rail and SBA/CGA Patient's Goals
[2019-06-15] MEDS ORDERED: SERT-184 PO (11:12)
[2019-06-20] MEDS ORDERED: FLUT9.9S (10:47)
== END 2019-06-14 14:19 | disposition home or self-care (01) ==
LOC: OR 00:40 → MED 17:13
PROVIDERS: ADMIT Orthopaedic Surgery; ATTEND Orthopaedic Surgery
DX: M17.12 Unilateral primary osteoarthritis, left knee (principal); G47.33 Obstructive sleep apnea (adult) (pediatric); K21.9 Gastro-esophageal reflux disease without esophagitis; E66.9 Obesity, unspecified; E03.9 Hypothyroidism, unspecified; R00.2 Palpitations
CPT/HCPCS: 27447; 36415; 73560; 85014; 85018; 85610; 86850; 86900; 86901; 97116; 97161; 97530; A9270; C1713; C1776; G0378; J0360; J0690; J1100; J2001; J2250; J2405; J2704; J3010; J3490; J7060